=== PATIENT | female | born 1960 | race Two or more races ===

== ENCOUNTER 2018-06-12 10:13 | Outpatient (CLI) | payer OTHER | END 2018-06-12 10:38 | disposition home or self-care (01) | LOC: NUCLEAR 10:13 | DX: Z13.820 Encounter for screening for osteoporosis (principal); M81.0 Age-related osteoporosis without current pathological fracture ==

== ENCOUNTER 2018-06-12 10:48 | Outpatient (CLI) | payer OTHER | END 2018-06-12 10:51 | disposition home or self-care (01) | LOC: MAMO-SONO 10:48 | DX: Z12.31 Encounter for screening mammogram for malignant neoplasm of breast (principal); N95.1 Menopausal and female climacteric states; Z00.00 Encounter for general adult medical examination without abnormal findings; Z13.828 Encounter for screening for other musculoskeletal disorder ==

== ENCOUNTER → 2020-12-03 08:16 | Outpatient (CLI) | payer OTHER | END | disposition home or self-care (01) | LOC: LAB 08:16 | PROVIDERS: ATTEND Obstetrics & Gynecology | DX: D50.8 Other iron deficiency anemias (principal); N39.0 Urinary tract infection, site not specified; E55.9 Vitamin D deficiency, unspecified; R42 Dizziness and giddiness; Z11.3 Encounter for screening for infections with a predominantly sexual mode of transmission; Z11.4 Encounter for screening for human immunodeficiency virus [HIV]; A64 Unspecified sexually transmitted disease ==

== ENCOUNTER 2020-12-03 08:46 | Outpatient (CLI) | payer OTHER | END 2020-12-03 08:53 | disposition home or self-care (01) | LOC: MAMO-SONO 08:46 | PROVIDERS: ATTEND Obstetrics & Gynecology | DX: Z12.31 Encounter for screening mammogram for malignant neoplasm of breast (principal); N64.4 Mastodynia; N63.0 Unspecified lump in unspecified breast ==

== ENCOUNTER → 2022-10-25 | Outpatient (CLI) | payer OTHER | END | disposition home or self-care (01) | LOC: RAD 10:46 | DX: R91.8 Other nonspecific abnormal finding of lung field (principal) ==

== ENCOUNTER 2023-04-13 10:00 | Outpatient (CLI) | payer OTHER | END 2023-04-13 10:20 | disposition home or self-care (01) | LOC: MAMO-SONO | PROVIDERS: ATTEND Obstetrics & Gynecology | DX: Z12.31 Encounter for screening mammogram for malignant neoplasm of breast (principal); N64.4 Mastodynia ==